=== PATIENT | male | born 1970 | race Caucasian/White ===

== ENCOUNTER 2019-10-08 19:47 | Emergency (ER) | payer MEDICAID ==
[~2019-10-08] VITALS: Ht 182.9 cm; Wt 104.3 kg
[2019-10-08 19:50] VITALS: BP 138/95
--- NOTE | 2019-10-08 19:54 | NUR ---
PT AMBULATED TO BED #4. NEGATIVE COVID-19 SCREENING. PT WEARING MASK
--- NOTE | 2019-10-08 19:55 | NUR ---
49 Y/O MALE C/O RT WRIST PAIN X 30MINS AGO S/P FALLING FROM PALYING BASKETBALL WITH SON. PT LANDED ON HIS RIGHT SIDE AND PUT ALL HIS WEIGHT ON HIS RT WRIST. RT WIRST SHOWS SWELLING, TENDERNESS TO TOUCH, OBIVOUS DEFORMITY NOTED. CMS INACT. RADIAL PULSES PRESENT +2 BUE. CAP REFILL < 3 BUE. MOTOR INTACT BUT HURTS TO MOVE FINGERS ON RT ARM. VSS. A&O X4. ABRASIONS LOCATED ON RT KNEE AND MID FOREHEAD. DNEIES ANY LOC, N,V. 2MM PERRLA BRISK. A&O X4. DENIES TAKING ANY PAIN MEDS PRIOR TO ARRIVAL. NKA. PMH: GERD.
--- NOTE | 2019-10-08 20:08 | NUR ---
XR AT BEDSIDE.
[2019-10-08] MEDS ORDERED: IBUPROFEN 800 MG TAB PO ONE (20:35)
--- NOTE | 2019-10-08 21:14 | NUR ---
DR HEARN AT BEDSIDE EVALUATING PT.
--- NOTE | 2019-10-08 21:30 | NUR ---
SUGARTONG SPLINT PLACED ON PT R ARM, WRAPPED WITH MOHIT WRAP. +CSM
--- NOTE | 2019-10-08 21:31 | NUR ---
SLING PLACED OVER PT R ARM, FASTENED TO SIZE
--- NOTE | 2019-10-08 21:59 | NUR ---
pt signed tdap consent form. admin adacel IM on left deltoid.
[2019-10-08 22:29] VITALS: BP 138/95
--- NOTE | 2019-10-08 22:29 | NUR ---
also advised pt to follow up with an ortho doctor.
--- NOTE | 2019-10-08 22:29 | NUR ---
Patient discharged with v/s stable. Written and verbal after care instructions given and explained. Patient alert, oriented and verbalized understanding of instructions. Ambulatory with steady gait. All questions addressed prior to discharge. ID band removed. Patient advised to follow up with PMD. Rx of norco and motrin given. Patient educated on indication of medication including possible reaction and side effects. Opportunity to ask questions provided and answered.
== END 2019-10-08 22:29 | disposition home or self-care (01) ==
LOC: MED 19:47
DX: S52.501A Unspecified fracture of the lower end of right radius, initial encounter for closed fracture (principal); S52.611A Displaced fracture of right ulna styloid process, initial encounter for closed fracture; K21.9 Gastro-esophageal reflux disease without esophagitis; W19.XXXA Unspecified fall, initial encounter; Y93.67 Activity, basketball; Y92.89 Other specified places as the place of occurrence of the external cause; Y99.8 Other external cause status
CPT/HCPCS: 73110; 90715; 99283

== ENCOUNTER 2020-11-07 14:46 | Emergency (ER) | payer MEDICAID ==
[~2020-11-07] VITALS: Ht 180.3 cm; Wt 99.8 kg
[2020-11-07 14:47] VITALS: BP 152/96
--- NOTE | 2020-11-07 15:00 | NUR ---
C/O LEFT LOWER BACK PAIN RADIATING TO GROIN THAT BEGAN TODAY. PAIN IS 7/10, SHARP AND CONTINUOUS. PATIENT DENIES ANY DYSURIA AT THIS TIME, OR ANY URINE CHANGES. HX: RENAL STONE
[2020-11-07] MEDS ORDERED: KETOROLAC 30 MG/ML VIAL IVP ONE (15:10)
[2020-11-07] MEDS ORDERED: ONDANSETRON 4 MG/2 ML VIAL IVP ONE (15:10)
[2020-11-07] MEDS ORDERED: NACL 0.9% 1,000 ML IV ONE (15:10)
[2020-11-07] MEDS ORDERED: TAMS0.4C96 PO (16:19)
[2020-11-07] MEDS ORDERED: IBUP-2213 PO (16:19)
[2020-11-07] MEDS ORDERED: SULF-58 PO (16:40)
[2020-11-07 16:49] VITALS: BP 152/96
--- NOTE | 2020-11-07 16:49 | NUR ---
Patient discharged with v/s stable. Written and verbal after care instructions given and explained. Patient alert, oriented and verbalized understanding of instructions. Ambulatory with steady gait. All questions addressed prior to discharge. ID band removed. Patient advised to follow up with PMD. Rx of IBUPROFEN, FLOMAX, BACTRIM given. Patient educated on indication of medication including possible reaction and side effects. Opportunity to ask questions provided and answered.
--- NOTE | 2020-11-12 19:55 | NUR ---
LATE ENTRY- 0.9% NS BOLUS DISCONTINUED AT 1645
== END 2020-11-07 16:49 | disposition home or self-care (01) ==
LOC: MED 14:46
DX: N39.0 Urinary tract infection, site not specified (principal); K21.9 Gastro-esophageal reflux disease without esophagitis; Z87.442 Personal history of urinary calculi
CPT/HCPCS: 74018; 81002; 87086; 96361; 96374; 96375; 99284; J1885; J2405; J7030